=== PATIENT | female | born 1995 | race Caucasian/White ===

== ENCOUNTER 2025-01-21 21:51 | Emergency (ER) | payer SELFPAY ==
[~2025-01-21] VITALS: Ht 157.5 cm; Wt 68.0 kg
[2025-01-21 21:57] VITALS: O2SAT 99
[2025-01-21 22:03] VITALS: BP 149/86; PULSE 102; RESP 16; TEMP 36.9; O2SAT 100
[2025-01-21 22:45] VITALS: TEMP 98.4
[2025-01-21] MEDS: ACETAMINOPHEN 325MG TABLET PO ONE (22:45)
[2025-01-21] MEDS ORDERED: LIDO-53 TP (23:51)
[2025-01-21] MEDS ORDERED: NAPR-1176 MT (23:51)
== END 2025-01-22 00:20 | disposition home or self-care (01) ==
LOC: ER 21:51
DX: S93.401A Sprain of unspecified ligament of right ankle, initial encounter (principal); Z79.1 Long term (current) use of non-steroidal anti-inflammatories (NSAID); Z79.899 Other long term (current) drug therapy; X50.1XXA Overexertion from prolonged static or awkward postures, initial encounter; Y93.89 Activity, other specified; Y92.89 Other specified places as the place of occurrence of the external cause; Y99.8 Other external cause status
CPT/HCPCS: 99283; 73610; A6449